=== PATIENT | female | born 1940 | race Caucasian/White ===

== ENCOUNTER → 2022-02-27 | Day surgery (SDC) | payer MEDICARE, OTHER ==
[~2022-02-27] VITALS: Ht 167.6 cm; Wt 77.1 kg
[~2022-02-27] MED LIST: ALPRAZOLAM 0.50.5 MG PO; COLESEVELAM HC625 MG PO; GABAPENTIN 100100 MG PO; MIRALAX17 GM PO; PROBIOTIC1 EAC1 PO; PROZAC20 MG PO; RITUXAN500 MG IV; VITAMIN D325 MC3 PO
[2022-02-27 09:12] LABS: HGB 11.4 g/dl (12.5-16.0); MCH 31.8 pg (25.0-31.0); MCHC 32.6 g/dL (32.0-36.0); MCV 97.5 fL (78.0-100.0); MPV 8.8 fL (6.0-9.5); RBC 3.59 M/uL (4.20-5.40); RDW 11.5 % (11.5-14.0); WBC 2.4 K/uL (4.0-10.5)
[2022-02-27 09:49] LABS: ALBUMIN 4.1 g/dL (3.4-5.0); BILIRUBIN - TOTAL 0.5 mg/dL (0.2-1.0); BUN/CREAT RATIO (CALC) 27.1 RATIO; CREATININE 0.85 mg/dL (0.51-0.95); GLOBULIN (CALCULATION) 2.8 g/dL; POTASSIUM 4.5 mmol/L (3.5-5.1); TOTAL PROTEIN 6.9 g/dL (6.4-8.2)
== END | disposition home or self-care (01) ==
LOC: FAS 08:33
PROVIDERS: Surgery
DX: D72.820 Lymphocytosis (symptomatic) (principal); I10 Essential (primary) hypertension; D58.9 Hereditary hemolytic anemia, unspecified; K21.9 Gastro-esophageal reflux disease without esophagitis; G47.30 Sleep apnea, unspecified; F41.9 Anxiety disorder, unspecified; F32.A Depression, unspecified; Z79.899 Other long term (current) drug therapy; Z80.6 Family history of leukemia
CPT/HCPCS: 36415; 80053; J1644; J2704; J7120